=== PATIENT | male | born 1970 | race Caucasian/White ===

== ENCOUNTER 2021-06-17 08:00 | Outpatient (CLI) | payer BC ==
--- NOTE | 2021-06-17 17:02 | XRAY Report ---
PROCEDURE: Finger(s) LT INDICATIONS: SPRAIN OF LEFT RING FINGER TECHNIQUE: AP hand, 2 views of the fourth finger(s) acquired. COMPARISON: None FINDINGS: Bones: On the lateral view, there is a 2 mm avulsion fracture seen involving the palmar aspect of th e proximal interphalangeal joint of the fourth finger. No additional fractures or dislocations. No suspicious bony lesions. Soft tissues: No suspicious soft tissue calcifications. IMPRESSION: 2 mm avulsion fracture seen involving the palmar aspect of the proximal interphalangeal joint of the fourth finger. Reviewed by: Pratik Nova MD on 06/17/2021 4:00 PM [facility] Approved by: Pratik Nova MD on 06/17/2021 4:00 PM [facility] Station ID: [id number]
== END 2021-06-17 23:59 | disposition home or self-care (01) ==
LOC: DI.S 08:00
PROVIDERS: ATTEND Emergency Medicine
DX: S62.615A Displaced fracture of proximal phalanx of left ring finger, initial encounter for closed fracture (principal)